=== PATIENT | male | born 1975 | race African-American/Black ===

== ENCOUNTER 2017-09-03 23:22 | Emergency (ER) | payer OTHER ==
[~2017-09-03] VITALS: Ht 185.4 cm; Wt 106.2 kg
[~2017-09-03 23:22] MED LIST: ALEVE220 MG PO; ASPIRIN325 MG PO; ATIVAN1 MG PO; GAS-X80 MG PO; PANTOPRAZOLE SO40 MG PO; XANAX0.25 MG PO; ZANTAC150 MG PO
[2017-09-04 02:18] LABS: HEMATOCRIT 44.7 % (38.0-50.0); HEMOGLOBIN 15.7 G/DL (12.5-16.6); MCH 30.9 PG (29.0-34.0); MCHC 35.1 G/DL (30.0-36.0); PLATELET COUNT 225 K/uL (156-360); RBC DIS.WIDTH-CV 12.3 % (11.8-14.6); RBC DIS.WIDTH-SD 39.8 % (39-53); RED BLOOD COUNT 5.08 M/uL (4.00-5.50); WHITE BLOOD COUNT 14.7 K/uL (4.1-10.2)
[2017-09-04 02:29] LABS: ALBUMIN 4.2 g/dL (3.2-4.8); CHLORIDE 102 mEq/L (99-109); POTASSIUM 4.3 mEq/L (3.7-5.4); SODIUM 139 mEq/L (136-147)
[2017-09-04 02:31] LABS: GLUCOSE 100 mg/dL (70-99); TOTAL PROTEIN 8.1 g/dL (6.4-8.3)
[2017-09-04 02:33] LABS: TOTAL BILIRUBIN 0.3 mg/dL (0.0-1.0)
[2017-09-04 02:35] LABS: ALKALINE PHOSPHATASE 97 IU/L (3-129); CREATININE 1.2 mg/dL (0.6-1.3); GFR ESTIMATE (CALCULATED) > 59 mL/min/ (58.99-99999)
[2017-09-04 02:36] LABS: UREA NITROGEN (BUN) 16 mg/dL (9-23)
[2017-09-04 02:37] LABS: AST (GOT) 22 IU/L (2-34)
[2017-09-04 02:38] LABS: ALT (GPT) 33 IU/L (3-49); URIC ACID 7.3 mg/dL (3.1-9.2)
[2017-09-04] MEDS ORDERED: NAPROSYN500 MG PO (03:13)
[2017-09-04] MEDS ORDERED: KEFLEX500 MG PO (03:13)
[2017-09-04] MEDS ORDERED: NORCO 5/3251 TABLET PO (03:13)
[2017-09-04 04:03] VITALS: BP 140/101
[2017-09-04 04:27] LABS: C-REACTIVE PROTEIN 8.9 MG/L (0-10)
== END 2017-09-04 04:04 | disposition home or self-care (01) ==
LOC: EME 23:22
PROVIDERS: Physician Assistant
DX: L03.115 Cellulitis of right lower limb (principal); M19.071 Primary osteoarthritis, right ankle and foot; M77.31 Calcaneal spur, right foot; Z79.82 Long term (current) use of aspirin
CPT/HCPCS: 73610; 80053; 84550; 85027; 86140; 99281; 99284

== ENCOUNTER 2017-11-07 08:46 | Emergency (ER) | payer OTHER ==
[~2017-11-07] VITALS: Ht 185.4 cm; Wt 100.0 kg
[~2017-11-07 08:46] MED LIST changes: +KEFLEX500 MG PO; +NAPROSYN500 MG PO; +NORCO 5/3251 TABLET PO
[2017-11-07 09:37] LABS: HEMATOCRIT 43.7 % (38.0-50.0); HEMOGLOBIN 15.2 G/DL (12.5-16.6); MCH 30.4 PG (29.0-34.0); MCHC 34.8 G/DL (30.0-36.0); MCV 87.4 FL (86-99); PLATELET COUNT 247 K/uL (156-360); RBC DIS.WIDTH-CV 12.5 % (11.8-14.6)
[2017-11-07 09:51] LABS: CHLORIDE 102 mEq/L (99-109); POTASSIUM 4.5 mEq/L (3.7-5.4); SODIUM 138 mEq/L (136-147)
[2017-11-07 09:53] LABS: GLUCOSE 99 mg/dL (70-99)
[2017-11-07 09:54] LABS: APPEARANCE CLEAR ((CLEAR)); BILIRUBIN NEGATIVE; BLOOD NEGATIVE; COLOR YELLOW ((YELLOW)); GLUCOSE (STRIP) NEGATIVE; KETONES NEGATIVE; LEUKOCYTES NEGATIVE; NITRITE NEGATIVE; PROTEIN (STRIP) NEGATIVE; SPECIFIC GRAVITY 1.021 (1.000-1.030); UCUL ADDED? NO; UROBILINOGEN 0.2 MG/DL (0.2-1.0)
[2017-11-07 09:57] LABS: CREATININE 1.1 mg/dL (0.6-1.3); GFR ESTIMATE (CALCULATED) > 59 mL/min/ (58.99-99999)
[2017-11-07 09:58] LABS: UREA NITROGEN (BUN) 17 mg/dL (9-23)
[2017-11-07 09:59] LABS: URIC ACID 6.9 mg/dL (3.1-9.2)
[2017-11-07] MEDS ORDERED: MOTRIN800 MG PO (11:02)
[2017-11-07] MEDS ORDERED: LIDODERM 5% P1 PATCH TD (11:02)
[2017-11-07] MEDS ORDERED: VOLTAREN 1% GE100 GM TP (11:05)
[2017-11-07 11:10] VITALS: BP 128/74
== END 2017-11-07 11:15 | disposition home or self-care (01) ==
LOC: EME 08:46
PROVIDERS: Nurse Practitioner Family
DX: M16.11 Unilateral primary osteoarthritis, right hip (principal); M10.9 Gout, unspecified; F41.9 Anxiety disorder, unspecified; J45.909 Unspecified asthma, uncomplicated; I10 Essential (primary) hypertension; K21.9 Gastro-esophageal reflux disease without esophagitis
CPT/HCPCS: 73502; 80048; 81003; 84550; 85027; 99281; 99284